=== PATIENT | female | born 1945 | race Caucasian/White ===

== ENCOUNTER 2018-06-26 23:23 | Inpatient (IN) ==
[2018-06-27] MEDS ORDERED: PROMETHAZINE 25 MG/1 ML VIAL IM PRN (02:03)
[2018-06-27] MEDS ORDERED: ZALEPLON 5 MG CAPSULE PO PRN (02:03)
[2018-06-27] MEDS ORDERED: ONDANSETRON 4 MG/2 ML VIAL IV PRN (02:03)
[2018-06-27] MEDS ORDERED: ACETAMINOPHEN 325 MG TABLET PO PRN (02:03)
[2018-06-27] MEDS ORDERED: MORPHINE 4 MG/1 ML VIAL IV PRN (02:03)
[2018-06-27] MEDS ORDERED: MAGNESIUM SULF RIDER 2 GM in PREMIX 1 EACH IV PRN (02:03)
[2018-06-27] MEDS ORDERED: DOCUSATE SODIUM 100 MG CAPSULE PO PRN (02:03)
[2018-06-27] MEDS ORDERED: MAGNESIUM SULF RIDER 4 GM in PREMIX 1 EACH IV PRN (02:03)
[2018-06-27] MEDS ORDERED: GLUCAGON 1 MG VIAL IM PRN (02:06)
[2018-06-27] MEDS ORDERED: DEXTROSE 50% 25 GM/50 ML VIAL IV PRN (02:06)
[2018-06-27] MEDS ORDERED: LOSARTAN 50 MG TABLET PO SCH (02:30)
[2018-06-27] MEDS ORDERED: FLUoxetine 20 MG CAPSULE PO SCH (02:30)
[2018-06-27] MEDS ORDERED: SODIUM CHLORIDE 0.9% 1,000 ML IV SCH (02:30)
[2018-06-27] MEDS ORDERED: LEVOTHYROXINE 50 MCG TABLET PO SCH (02:30)
[2018-06-27] MEDS ORDERED: ENOXAPARIN 40 MG/0.4 ML SYRINGE SUBCUT SCH (02:30)
[2018-06-27] MEDS ORDERED: CLOPIDOGREL 75 MG TABLET PO SCH (02:30)
[2018-06-27 06:42] LABS: Basophils # 0.1 10*3/uL (0.0-0.2); Basophils % 0.9 % (0.0-0.8); Eosinophils # 0.1 10*3/uL (0.0-0.87); Hematocrit 34.9 VOL% (35.7-47.0); Hemoglobin 11.2 GM/DL (12.0-16.0); Immature Granulocytes % 0.3 %; Immature Granulocytes Absolute 0.03 #; Lymphocytes # 2.8 10*3/uL (1.4-4.0); Lymphocytes % 31.4 % (21.3-54.2); Mean Corpuscular HGB Conc 32.1 GM/DL (32-36); Mean Corpuscular Hemoglobin 28 PG (27-34); Mean Corpuscular Volume 87.5 FL (87-102); Mean Platelet Volume 11.2 FL (9.6-12.0); Monocytes # 0.6 10*3/uL (0.11-0.8); Monocytes % 6.9 % (1.7-12.7); Neutrophils # 5.4 10*3/uL (1.4-7.4); Neutrophils % 59.5 % (38.7-73.9); Platelet Count 245 T/CUMM (130-400); Red Blood Count 3.99 MC/CUMM (3.8-5.5); Red Cell Distribution Width 14.2 % (9.3-17.3)
[2018-06-27 07:34] LABS: Alanine Aminotransferase 15 U/L (13-56); Albumin 2.9 G/DL (3.4-5.0); Alkaline Phosphatase 67 U/L (45-117); Aspartate Amino Transferase 17 U/L (0-37); Bilirubin,Total < 0.39 MG/DL (0.2-1.0); Blood Urea Nitrogen 25 MG/DL (7-18); Calcium 8.7 MG/DL (8.5-10.1); Cholesterol 239 MG/DL (50-200); Glucose 214 MG/DL (74-106); HDL Cholesterol 29 MG/DL (40-60); Potassium 3.4 MMOL/L (3.5-5.1); Risk Ratio 8.24; Sodium 143 MMOL/L (136-145); Total Protein 6.6 G/DL (6.4-8.3); Triglycerides 239 MG/DL (2-150); VLDL CHOLESTEROL 47.8 MG/DL
[2018-06-27] MEDS: PANTOPRAZOLE 40 MG TABLET PO SCH (08:44)
[2018-06-27] MEDS ORDERED: CARVEDILOL 3.125 MG TABLET PO SCH (09:00)
[2018-06-27] MEDS ORDERED: ASPIRIN EC 81 MG TABLET PO SCH (09:00)
[2018-06-27] MEDS ORDERED: CARVEDILOL 3.125 MG TABLET PO ONE (10:10)
[2018-06-27] MEDS ORDERED: NITROGLYCERIN SL 0.4 MG TABLET SL PRN (10:12)
[2018-06-27] MEDS ORDERED: POTASSIUM CHLORIDE 20 MEQ TABLET PO PRN (10:15)
[2018-06-27] MEDS ORDERED: ENOXAPARIN 80 MG/0.8 ML SYRINGE SUBCUT ONE (10:44)
[2018-06-27] MEDS: INSULIN REGULAR 100 UNIT/ML SUBCUT SCH ×4 (11:19→21:33)
[2018-06-27] MEDS: ISOSORBIDE MONONITRATE 30 MG TABLET PO SCH (12:30)
[2018-06-27] MEDS ORDERED: ALBUTEROL/IPRATROPIUM 3 ML NEB RESP TX PRN (14:07)
[2018-06-27] MEDS ORDERED: POTASSIUM CHLORIDE 20 MEQ TABLET PO ONE (16:26)
[2018-06-27] MEDS: SODIUM CHLORIDE 0.45% 1,000 ML IV SCH (16:29)
[2018-06-27 16:52] LABS: Troponin I 0.824 NG/ML (0.00-0.045)
[2018-06-27] MEDS: NITROGLYCERIN SL 0.4 MG TABLET SL PRN ×2 (19:37→19:42)
[2018-06-27] MEDS ORDERED: CARVEDILOL 6.25 MG TABLET PO SCH (21:00)
[2018-06-27] MEDS: ROSUVASTATIN 20 MG TABLET PO SCH (21:32)
[2018-06-27 21:39] LABS: Troponin I 0.749 NG/ML (0.00-0.045)
[2018-06-27] MEDS ORDERED: ASPIRIN CHEW 81 MG TABLET PO ONE (21:42)
[2018-06-28 04:57] LABS: Basophils # 0.1 10*3/uL (0.0-0.2); Basophils % 0.9 % (0.0-0.8); Eosinophils # 0.1 10*3/uL (0.0-0.87); Eosinophils % 0.5 % (0.00-10.9); Hematocrit 33.8 VOL% (35.7-47.0); Hemoglobin 10.8 GM/DL (12.0-16.0); Immature Granulocytes % 0.4 %; Immature Granulocytes Absolute 0.04 #; Lymphocytes # 2.4 10*3/uL (1.4-4.0); Lymphocytes % 22.7 % (21.3-54.2); Mean Corpuscular Hemoglobin 28 PG (27-34); Mean Corpuscular Volume 88.3 FL (87-102); Mean Platelet Volume 10.8 FL (9.6-12.0); Monocytes # 0.7 10*3/uL (0.11-0.8); Neutrophils # 7.2 10*3/uL (1.4-7.4); Neutrophils % 68.5 % (38.7-73.9); Platelet Count 226 T/CUMM (130-400); Red Blood Count 3.83 MC/CUMM (3.8-5.5); Red Cell Distribution Width 14.1 % (9.3-17.3); White Blood Count 10.5 T/CUMM (4-12)
[2018-06-28 05:13] LABS: Calcium 8.9 MG/DL (8.5-10.1); Osmolality,Calculated 300.1 MOS/KG (273-304); Osmolality,Calculated 301.1 MOS/KG (273-304); Potassium 4.3 MMOL/L (3.5-5.1)
[2018-06-28] MEDS ORDERED: ENOXAPARIN 80 MG/0.8 ML SYRINGE SUBCUT ONE (07:00)
[2018-06-28] MEDS ORDERED: CARVEDILOL 12.5 MG TABLET PO SCH (08:41)
[2018-06-28] MEDS ORDERED: MAGNESIUM CHLORIDE 64 MG TABLET PO SCH (09:00)
[2018-06-28] MEDS: INSULIN REGULAR 100 UNIT/ML SUBCUT SCH ×4 (11:36→20:49)
[2018-06-28] MEDS: ASPIRIN CHEW 81 MG TABLET PO SCH (11:37)
[2018-06-28] MEDS: SODIUM CHLORIDE 0.45% 1,000 ML IV SCH (11:37)
[2018-06-28] MEDS: ISOSORBIDE MONONITRATE 30 MG TABLET PO SCH (11:38)
[2018-06-28] MEDS: PANTOPRAZOLE 40 MG TABLET PO SCH (11:39)
[2018-06-28] MEDS ORDERED: DIAZEPAM 5 MG TABLET ONE (12:00)
[2018-06-28] MEDS ORDERED: diphenhydrAMINE CAP 25 MG CAPSULE ONE (12:02)
[2018-06-28] MEDS ORDERED: ISOSORBIDE MONONITRATE 60 MG TABLET PO SCH (14:00)
[2018-06-28] MEDS ORDERED: ISOSORBIDE MONONITRATE 30 MG TABLET PO ONE (14:00)
[2018-06-28] MEDS ORDERED: DIAZEPAM 5 MG TABLET PO ONE (14:30)
[2018-06-28] MEDS ORDERED: diphenhydrAMINE CAP 25 MG CAPSULE PO ONE (14:30)
[2018-06-28] MEDS: glipiZIDE 5 MG TABLET PO SCH (15:37)
[2018-06-28] MEDS: ALBUTEROL/IPRATROPIUM 3 ML NEB RESP TX SCH ×2 (20:00→23:59)
[2018-06-28] MEDS: MAGNESIUM SULF RIDER 4 GM in PREMIX 1 EACH IV ONE (20:19)
[2018-06-28] MEDS: MAGNESIUM CHLORIDE 64 MG TABLET PO SCH (20:48)
[2018-06-28] MEDS: ROSUVASTATIN 20 MG TABLET PO SCH (20:49)
[2018-06-28] MEDS ORDERED: NEBIVOLOL 10 MG TABLET PO SCH (21:00)
[2018-06-28] MEDS ORDERED: FUROSEMIDE 40 MG/4 ML VIAL IV ONE (22:53)
[2018-06-29 00:02] LABS: Apearance,Urine Slightly Hazy (Clear); Bacteria,Urine Occasional /HPF (Few); Bilirubin,Urine Negative (Negative); Blood, Urine Small mg/dL (Negative); Glucose,Urine (UA) 150 mg/dL (Negative); Ketones,Urine Negative (Negative); Mucus,Urine Occasional /LPF (Occasional); Nitrite,Urine Negative (Negative); Protein,Urine 100 MG/DL; RBC,Urine <1 /HPF (0-4); Urine Color Yellow (Yellow); Urine Urobilinogen < 2.0 EU/DL (0.2-1.0); WBC,Urine <1 /HPF (0-6)
[2018-06-29 06:03] LABS: Calcium 9.2 MG/DL (8.5-10.1); Osmolality,Calculated 293.5 MOS/KG (273-304); Potassium 3.7 MMOL/L (3.5-5.1)
[2018-06-29] MEDS ORDERED: ENOXAPARIN 80 MG/0.8 ML SYRINGE SUBCUT ONE (07:00)
[2018-06-29] MEDS: ALBUTEROL/IPRATROPIUM 3 ML NEB RESP TX SCH ×3 (07:40→19:32)
[2018-06-29] MEDS: MAGNESIUM CHLORIDE 64 MG TABLET PO SCH ×2 (08:53→21:18)
[2018-06-29] MEDS: glipiZIDE 5 MG TABLET PO SCH ×2 (08:54→16:59)
[2018-06-29] MEDS: ASPIRIN CHEW 81 MG TABLET PO SCH (08:54)
[2018-06-29] MEDS: FAMOTIDINE 20 MG TABLET PO SCH (08:54)
[2018-06-29] MEDS: INSULIN REGULAR 100 UNIT/ML SUBCUT SCH ×4 (08:55→21:17)
[2018-06-29] MEDS: ISOSORBIDE MONONITRATE 60 MG TABLET PO SCH (08:55)
[2018-06-29] MEDS: MAGNESIUM SULF RIDER 4 GM in PREMIX 1 EACH IV ONE (09:03)
[2018-06-29] MEDS: BISOPROLOL 5 MG TABLET PO SCH ×3 (09:05→21:18)
[2018-06-29] MEDS: MEROPENEM 500 MG in SODIUM CHLORIDE 0.9% 100 ML IV SCH (14:30)
[2018-06-29] MEDS: ROSUVASTATIN 20 MG TABLET PO SCH (21:17)
[2018-06-29] MEDS: MONTELUKAST 10 MG TABLET PO SCH (21:17)
[2018-06-29] MEDS: ACETYLCYSTEINE 600 MG CAPSULE PO SCH (21:18)
[2018-06-30] MEDS: ALBUTEROL/IPRATROPIUM 3 ML NEB RESP TX SCH ×4 (00:04→19:34)
[2018-06-30] MEDS: MEROPENEM 500 MG in SODIUM CHLORIDE 0.9% 100 ML IV SCH ×2 (02:19→13:03)
[2018-06-30 04:04] LABS: Basophils # 0.1 10*3/uL (0.0-0.2); Basophils % 0.7 % (0.0-0.8); Eosinophils # 0.1 10*3/uL (0.0-0.87); Eosinophils % 1.1 % (0.00-10.9); Hematocrit 32.4 VOL% (35.7-47.0); Hemoglobin 10.4 GM/DL (12.0-16.0); Immature Granulocytes % 0.6 %; Immature Granulocytes Absolute 0.08 #; Lymphocytes # 2.3 10*3/uL (1.4-4.0); Lymphocytes % 18.9 % (21.3-54.2); Mean Corpuscular HGB Conc 32.1 GM/DL (32-36); Mean Corpuscular Hemoglobin 28 PG (27-34); Mean Corpuscular Volume 87.1 FL (87-102); Mean Platelet Volume 10.9 FL (9.6-12.0); Monocytes # 0.9 10*3/uL (0.11-0.8); Monocytes % 7.2 % (1.7-12.7); Neutrophils # 8.8 10*3/uL (1.4-7.4); Neutrophils % 71.5 % (38.7-73.9); Platelet Count 249 T/CUMM (130-400); Red Blood Count 3.72 MC/CUMM (3.8-5.5); Red Cell Distribution Width 14.2 % (9.3-17.3); White Blood Count 12.4 T/CUMM (4-12)
[2018-06-30 04:34] LABS: Calcium 9.1 MG/DL (8.5-10.1); Osmolality,Calculated 298.4 MOS/KG (273-304); Potassium 3.5 MMOL/L (3.5-5.1)
[2018-06-30] MEDS ORDERED: LEVOFLOXACIN INJ 500 MG in PREMIX 1 EACH IV SCH (09:00)
[2018-06-30] MEDS: ISOSORBIDE MONONITRATE 60 MG TABLET PO SCH (09:06)
[2018-06-30] MEDS: glipiZIDE 5 MG TABLET PO SCH ×2 (09:06→17:05)
[2018-06-30] MEDS: hydrALAZINE 10 MG TABLET PO SCH ×4 (09:07→20:50)
[2018-06-30] MEDS: ASPIRIN CHEW 81 MG TABLET PO SCH (09:07)
[2018-06-30] MEDS: INSULIN REGULAR 100 UNIT/ML SUBCUT SCH ×4 (10:03→20:50)
[2018-06-30] MEDS: guaiFENesin/DM ER 600-30 MG TABLET PO PRN (10:37)
[2018-06-30] MEDS: FAMOTIDINE 20 MG TABLET PO SCH (10:37)
[2018-06-30] MEDS: MAGNESIUM CHLORIDE 64 MG TABLET PO SCH ×2 (10:37→20:51)
[2018-06-30] MEDS: MONTELUKAST 10 MG TABLET PO SCH (10:38)
[2018-06-30] MEDS: RANOLAZINE 500 MG TABLET PO SCH ×2 (10:38→20:50)
[2018-06-30] MEDS: ACETYLCYSTEINE 600 MG CAPSULE PO SCH ×2 (10:44→20:51)
[2018-06-30] MEDS: BISOPROLOL 5 MG TABLET PO SCH (10:49)
[2018-06-30] MEDS: POTASSIUM CHLORIDE 20 MEQ TABLET PO SCH (13:04)
[2018-06-30] MEDS: ASCORBIC ACID 500 MG TABLET PO SCH ×2 (13:04→20:51)
[2018-06-30] MEDS: CARVEDILOL 12.5 MG TABLET PO SCH (20:50)
[2018-06-30] MEDS: TAMSULOSIN 0.4 MG CAPSULE PO SCH (20:51)
[2018-06-30] MEDS: ROSUVASTATIN 20 MG TABLET PO SCH (20:51)
[2018-06-30] MEDS ORDERED: INSULIN GLARGINE 100 UNIT/ML SUBCUT SCH (21:00)
[2018-07-01] MEDS: ALBUTEROL/IPRATROPIUM 3 ML NEB RESP TX SCH ×4 (00:35→19:02)
[2018-07-01] MEDS: MEROPENEM 500 MG in SODIUM CHLORIDE 0.9% 100 ML IV SCH ×2 (01:00→13:07)
[2018-07-01 03:34] LABS: Basophils # 0.1 10*3/uL (0.0-0.2); Basophils % 0.6 % (0.0-0.8); Eosinophils # 0.2 10*3/uL (0.0-0.87); Eosinophils % 1.7 % (0.00-10.9); Hematocrit 32.4 VOL% (35.7-47.0); Hemoglobin 10.1 GM/DL (12.0-16.0); Immature Granulocytes % 0.6 %; Immature Granulocytes Absolute 0.07 #; Lymphocytes # 1.5 10*3/uL (1.4-4.0); Lymphocytes % 13.3 % (21.3-54.2); Mean Corpuscular HGB Conc 31.2 GM/DL (32-36); Mean Corpuscular Hemoglobin 27 PG (27-34); Mean Platelet Volume 11.3 FL (9.6-12.0); Monocytes # 0.7 10*3/uL (0.11-0.8); Monocytes % 6.4 % (1.7-12.7); Neutrophils # 8.5 10*3/uL (1.4-7.4); Neutrophils % 77.4 % (38.7-73.9); Platelet Count 256 T/CUMM (130-400); Red Blood Count 3.68 MC/CUMM (3.8-5.5); Red Cell Distribution Width 14.4 % (9.3-17.3); White Blood Count 10.9 T/CUMM (4-12)
[2018-07-01 03:53] LABS: Calcium 9.1 MG/DL (8.5-10.1); Osmolality,Calculated 305.3 MOS/KG (273-304); Potassium 4.2 MMOL/L (3.5-5.1)
[2018-07-01] MEDS ORDERED: SODIUM CHLORIDE 0.65% NASAL SPRAY 45 ML BOTTLE BOTH NARES PRN (07:59)
[2018-07-01] MEDS: MONTELUKAST 10 MG TABLET PO SCH (09:27)
[2018-07-01] MEDS: MAGNESIUM CHLORIDE 64 MG TABLET PO SCH ×2 (09:27→20:56)
[2018-07-01] MEDS: FAMOTIDINE 20 MG TABLET PO SCH (09:27)
[2018-07-01] MEDS: ASCORBIC ACID 500 MG TABLET PO SCH ×2 (09:28→20:57)
[2018-07-01] MEDS: hydrALAZINE 10 MG TABLET PO SCH ×3 (09:28→20:57)
[2018-07-01] MEDS: TAMSULOSIN 0.4 MG CAPSULE PO SCH ×2 (09:28→20:58)
[2018-07-01] MEDS: CARVEDILOL 12.5 MG TABLET PO SCH (09:29)
[2018-07-01] MEDS: RANOLAZINE 500 MG TABLET PO SCH ×2 (09:29→20:57)
[2018-07-01] MEDS: INSULIN REGULAR 100 UNIT/ML SUBCUT SCH ×4 (09:29→21:04)
[2018-07-01] MEDS: glipiZIDE 5 MG TABLET PO SCH ×2 (09:30→16:46)
[2018-07-01] MEDS: guaiFENesin/DM ER 600-30 MG TABLET PO PRN (09:30)
[2018-07-01] MEDS: ISOSORBIDE MONONITRATE 60 MG TABLET PO SCH (09:31)
[2018-07-01] MEDS: POTASSIUM CHLORIDE 20 MEQ TABLET PO SCH (09:31)
[2018-07-01] MEDS: ACETYLCYSTEINE 600 MG CAPSULE PO SCH ×2 (09:32→20:58)
[2018-07-01] MEDS: ASPIRIN CHEW 81 MG TABLET PO SCH (09:39)
[2018-07-01] MEDS: FLUTICASONE 50 MCG NASAL SPRAY 16 GM BOTTLE BOTH NARES SCH (09:40)
[2018-07-01] MEDS ORDERED: CARVEDILOL 12.5 MG TABLET PO ONE (10:00)
[2018-07-01] MEDS ORDERED: FLUCONAZOLE 100 MG TABLET PO ONE (10:27)
[2018-07-01] MEDS ORDERED: INSULIN GLARGINE 100 UNIT/ML SUBCUT SCH (11:52)
[2018-07-01] MEDS: LACTULOSE 20 GM/30 ML UDCUP PO PRN (16:46)
[2018-07-01] MEDS: CARVEDILOL 25 MG TABLET PO SCH (20:57)
[2018-07-01] MEDS: ROSUVASTATIN 20 MG TABLET PO SCH (21:05)
[2018-07-02] MEDS: ALBUTEROL/IPRATROPIUM 3 ML NEB RESP TX SCH ×4 (00:59→19:36)
[2018-07-02] MEDS: MEROPENEM 500 MG in SODIUM CHLORIDE 0.9% 100 ML IV SCH ×2 (01:01→13:27)
[2018-07-02 03:46] LABS: Basophils # 0.1 10*3/uL (0.0-0.2); Basophils % 0.7 % (0.0-0.8); Eosinophils # 0.2 10*3/uL (0.0-0.87); Eosinophils % 2.3 % (0.00-10.9); Hematocrit 29.8 VOL% (35.7-47.0); Hemoglobin 9.6 GM/DL (12.0-16.0); Immature Granulocytes % 1.7 %; Immature Granulocytes Absolute 0.16 #; Lymphocytes # 1.5 10*3/uL (1.4-4.0); Lymphocytes % 15.9 % (21.3-54.2); Mean Corpuscular HGB Conc 32.2 GM/DL (32-36); Mean Corpuscular Hemoglobin 28 PG (27-34); Mean Corpuscular Volume 86.9 FL (87-102); Mean Platelet Volume 11.3 FL (9.6-12.0); Monocytes # 0.6 10*3/uL (0.11-0.8); Monocytes % 6.6 % (1.7-12.7); Neutrophils % 72.8 % (38.7-73.9); Platelet Count 268 T/CUMM (130-400); Red Blood Count 3.43 MC/CUMM (3.8-5.5); Red Cell Distribution Width 14.2 % (9.3-17.3); White Blood Count 9.7 T/CUMM (4-12)
[2018-07-02 04:09] LABS: Calcium 9.2 MG/DL (8.5-10.1); Osmolality,Calculated 307.4 MOS/KG (273-304); Potassium 4.3 MMOL/L (3.5-5.1)
[2018-07-02 04:10] LABS: Calcium 9.1 MG/DL (8.5-10.1); Osmolality,Calculated 310.3 MOS/KG (273-304); Potassium 4.3 MMOL/L (3.5-5.1)
[2018-07-02] MEDS: LACTULOSE 20 GM/30 ML UDCUP PO PRN (10:10)
[2018-07-02] MEDS: ACETYLCYSTEINE 600 MG CAPSULE PO SCH ×2 (10:11→20:18)
[2018-07-02] MEDS: ISOSORBIDE MONONITRATE 60 MG TABLET PO SCH (10:11)
[2018-07-02] MEDS: RANOLAZINE 500 MG TABLET PO SCH ×2 (10:12→20:18)
[2018-07-02] MEDS: MAGNESIUM CHLORIDE 64 MG TABLET PO SCH ×2 (10:12→20:17)
[2018-07-02] MEDS: FAMOTIDINE 20 MG TABLET PO SCH (10:12)
[2018-07-02] MEDS: glipiZIDE 5 MG TABLET PO SCH ×2 (10:12→16:51)
[2018-07-02] MEDS: MONTELUKAST 10 MG TABLET PO SCH (10:12)
[2018-07-02] MEDS: ASCORBIC ACID 500 MG TABLET PO SCH ×2 (10:13→20:18)
[2018-07-02] MEDS: POTASSIUM CHLORIDE 20 MEQ TABLET PO SCH (10:13)
[2018-07-02] MEDS: TAMSULOSIN 0.4 MG CAPSULE PO SCH ×2 (10:13→20:18)
[2018-07-02] MEDS: ASPIRIN CHEW 81 MG TABLET PO SCH (10:14)
[2018-07-02] MEDS: hydrALAZINE 10 MG TABLET PO SCH ×3 (10:14→15:23)
[2018-07-02] MEDS: INSULIN REGULAR 100 UNIT/ML SUBCUT SCH ×4 (10:15→20:18)
[2018-07-02] MEDS: CARVEDILOL 25 MG TABLET PO SCH (10:15)
[2018-07-02] MEDS: FLUTICASONE 50 MCG NASAL SPRAY 16 GM BOTTLE BOTH NARES SCH (10:16)
[2018-07-02] MEDS ORDERED: BISACODYL 10 MG SUPP RECTAL ONE (10:39)
[2018-07-02] MEDS: DOCUSATE SODIUM 100 MG CAPSULE PO SCH ×2 (11:42→20:18)
[2018-07-02] MEDS: ENOXAPARIN 30 MG/0.3 ML SYRINGE SUBCUT SCH (11:42)
[2018-07-02] MEDS: POLYETHYLENE GLYCOL POWDER 17 GM PACK PO SCH ×2 (11:43→20:19)
[2018-07-02] MEDS ORDERED: INSULIN GLARGINE 100 UNIT/ML SUBCUT SCH (13:02)
[2018-07-02] MEDS: hydrALAZINE 25 MG TABLET PO SCH (20:18)
[2018-07-02] MEDS: ROSUVASTATIN 20 MG TABLET PO SCH (20:18)
[2018-07-03] MEDS: ALBUTEROL/IPRATROPIUM 3 ML NEB RESP TX SCH ×4 (01:20→19:07)
[2018-07-03] MEDS: MEROPENEM 500 MG in SODIUM CHLORIDE 0.9% 100 ML IV SCH ×2 (01:38→13:57)
[2018-07-03 03:43] LABS: Basophils # 0.1 10*3/uL (0.0-0.2); Basophils % 0.9 % (0.0-0.8); Eosinophils # 0.3 10*3/uL (0.0-0.87); Eosinophils % 2.9 % (0.00-10.9); Hematocrit 29.5 VOL% (35.7-47.0); Hemoglobin 9.3 GM/DL (12.0-16.0); Immature Granulocytes % 0.3 %; Immature Granulocytes Absolute 0.03 #; Lymphocytes # 1.6 10*3/uL (1.4-4.0); Lymphocytes % 15.7 % (21.3-54.2); Mean Corpuscular HGB Conc 31.5 GM/DL (32-36); Mean Corpuscular Hemoglobin 28 PG (27-34); Mean Corpuscular Volume 87.5 FL (87-102); Monocytes # 0.6 10*3/uL (0.11-0.8); Monocytes % 6.4 % (1.7-12.7); Neutrophils # 7.3 10*3/uL (1.4-7.4); Neutrophils % 73.8 % (38.7-73.9); Platelet Count 289 T/CUMM (130-400); Red Blood Count 3.37 MC/CUMM (3.8-5.5); Red Cell Distribution Width 14.1 % (9.3-17.3); White Blood Count 9.9 T/CUMM (4-12)
[2018-07-03 04:03] LABS: Calcium 9.2 MG/DL (8.5-10.1); Osmolality,Calculated 303.3 MOS/KG (273-304); Potassium 4.2 MMOL/L (3.5-5.1)
[2018-07-03] MEDS ORDERED: INSULIN GLARGINE 100 UNIT/ML SUBCUT SCH (07:10)
[2018-07-03] MEDS: INSULIN REGULAR 100 UNIT/ML SUBCUT SCH ×4 (09:18→20:20)
[2018-07-03] MEDS: ENOXAPARIN 30 MG/0.3 ML SYRINGE SUBCUT SCH (09:19)
[2018-07-03] MEDS: LACTULOSE 20 GM/30 ML UDCUP PO SCH ×3 (09:19→22:28)
[2018-07-03] MEDS: FAMOTIDINE 20 MG TABLET PO SCH (09:20)
[2018-07-03] MEDS: MAGNESIUM CHLORIDE 64 MG TABLET PO SCH ×2 (09:20→22:30)
[2018-07-03] MEDS: ASPIRIN CHEW 81 MG TABLET PO SCH (09:21)
[2018-07-03] MEDS: POTASSIUM CHLORIDE 20 MEQ TABLET PO SCH (09:21)
[2018-07-03] MEDS: NEBIVOLOL 10 MG TABLET PO SCH (09:21)
[2018-07-03] MEDS: DOCUSATE SODIUM 100 MG CAPSULE PO SCH ×2 (09:21→22:28)
[2018-07-03] MEDS: ISOSORBIDE MONONITRATE 60 MG TABLET PO SCH (09:22)
[2018-07-03] MEDS: glipiZIDE 5 MG TABLET PO SCH ×2 (09:22→16:52)
[2018-07-03] MEDS: MONTELUKAST 10 MG TABLET PO SCH (09:22)
[2018-07-03] MEDS: hydrALAZINE 25 MG TABLET PO SCH ×2 (09:22→22:29)
[2018-07-03] MEDS: RANOLAZINE 500 MG TABLET PO SCH ×2 (09:22→22:30)
[2018-07-03] MEDS: POLYETHYLENE GLYCOL POWDER 17 GM PACK PO SCH ×2 (09:23→22:29)
[2018-07-03] MEDS: TAMSULOSIN 0.4 MG CAPSULE PO SCH ×2 (09:23→22:29)
[2018-07-03] MEDS: FLUTICASONE 50 MCG NASAL SPRAY 16 GM BOTTLE BOTH NARES SCH (09:23)
[2018-07-03] MEDS: ASCORBIC ACID 500 MG TABLET PO SCH ×2 (09:23→22:30)
[2018-07-03] MEDS: SENNA 8.6 MG TABLET PO SCH ×2 (09:32→22:30)
[2018-07-03] MEDS ORDERED: MINERAL OIL 30 ML UDCUP PO ONE (15:55)
[2018-07-03] MEDS: ROSUVASTATIN 20 MG TABLET PO SCH (22:26)
[2018-07-04] MEDS ORDERED: ZIPRASIDONE 20 MG/1 ML VIAL IM ONE (00:30)
[2018-07-04] MEDS: MEROPENEM 500 MG in SODIUM CHLORIDE 0.9% 100 ML IV SCH (01:10)
[2018-07-04] MEDS: ALBUTEROL/IPRATROPIUM 3 ML NEB RESP TX SCH ×2 (01:27→06:53)
[2018-07-04 03:22] LABS: Basophils # 0.1 10*3/uL (0.0-0.2); Basophils % 0.7 % (0.0-0.8); Eosinophils # 0.1 10*3/uL (0.0-0.87); Eosinophils % 1.1 % (0.00-10.9); Hematocrit 29.8 VOL% (35.7-47.0); Hemoglobin 9.4 GM/DL (12.0-16.0); Immature Granulocytes % 0.6 %; Immature Granulocytes Absolute 0.05 #; Lymphocytes # 1.3 10*3/uL (1.4-4.0); Lymphocytes % 13.9 % (21.3-54.2); Mean Corpuscular HGB Conc 31.5 GM/DL (32-36); Mean Corpuscular Hemoglobin 28 PG (27-34); Mean Corpuscular Volume 87.1 FL (87-102); Monocytes # 0.5 10*3/uL (0.11-0.8); Neutrophils # 7.2 10*3/uL (1.4-7.4); Neutrophils % 78.7 % (38.7-73.9); Platelet Count 305 T/CUMM (130-400); Red Blood Count 3.42 MC/CUMM (3.8-5.5); Red Cell Distribution Width 14.4 % (9.3-17.3); White Blood Count 9.1 T/CUMM (4-12)
[2018-07-04 03:36] LABS: Calcium 9.2 MG/DL (8.5-10.1); Osmolality,Calculated 296.5 MOS/KG (273-304); Potassium 4.9 MMOL/L (3.5-5.1)
[2018-07-04 08:18] VITALS: BP 163/76
[2018-07-04] MEDS ORDERED: CLOPIDOGREL 75 MG TABLET PO SCH (09:00)
[2018-07-04] MEDS ORDERED: ASPIRIN EC 81 MG TABLET PO SCH (09:00)
[2018-07-04] MEDS: INSULIN REGULAR 100 UNIT/ML SUBCUT SCH (09:20)
[2018-07-04] MEDS: MAGNESIUM CHLORIDE 64 MG TABLET PO SCH (09:21)
[2018-07-04] MEDS: POTASSIUM CHLORIDE 20 MEQ TABLET PO SCH (09:22)
[2018-07-04] MEDS: TAMSULOSIN 0.4 MG CAPSULE PO SCH (09:22)
[2018-07-04] MEDS: ISOSORBIDE MONONITRATE 60 MG TABLET PO SCH (09:22)
[2018-07-04] MEDS: FAMOTIDINE 20 MG TABLET PO SCH (09:23)
[2018-07-04] MEDS: ASCORBIC ACID 500 MG TABLET PO SCH (09:23)
[2018-07-04] MEDS: RANOLAZINE 500 MG TABLET PO SCH (09:23)
[2018-07-04] MEDS: NEBIVOLOL 10 MG TABLET PO SCH (09:23)
[2018-07-04] MEDS: MONTELUKAST 10 MG TABLET PO SCH (09:23)
[2018-07-04] MEDS: LACTULOSE 20 GM/30 ML UDCUP PO SCH (09:24)
[2018-07-04] MEDS: DOCUSATE SODIUM 100 MG CAPSULE PO SCH (09:24)
[2018-07-04] MEDS: FLUTICASONE 50 MCG NASAL SPRAY 16 GM BOTTLE BOTH NARES SCH (09:48)
[2018-07-04] MEDS: ENOXAPARIN 30 MG/0.3 ML SYRINGE SUBCUT SCH (09:49)
[2018-07-04] MEDS: POLYETHYLENE GLYCOL POWDER 17 GM PACK PO SCH (09:49)
[2018-07-04] MEDS: glipiZIDE 5 MG TABLET PO SCH (10:37)
== END 2018-07-04 13:34 | disposition home health service (06) | DRG 280 ==
LOC: SUATTDRO 06-27 00:35 → N.TELEN 06-27 00:35
PROVIDERS: ADMIT Internal Medicine; ATTEND Hospitalist